=== PATIENT | female | born 1965 | race African-American/Black ===

== ENCOUNTER 2023-03-26 04:10 | Day surgery (SDC) | payer OTHER ==
[2023-03-25 17:20] VITALS: BMI 32.2
[2023-03-26 07:48] VITALS: RESP 20
[2023-03-26] MEDS ORDERED: MIDAZOLAM HCL 2 MG/2 ML SINGLE DOSE VIAL ONE (08:59)
[2023-03-26] MEDS ORDERED: ONDANSETRON 4 MG/2 ML VIAL ONE (09:35)
[2023-03-26] MEDS ORDERED: PROPOFOL 20 ML ONE (09:49)
[2023-03-26] MEDS ORDERED: ELECTROLYTE-148 SOLN 1,000 ML IV SCH (10:15)
[2023-03-26 12:34] VITALS: BP 127/73; PULSE 52; TEMP 96.6
== END 2023-03-26 13:30 | disposition home or self-care (01) ==
LOC: JASU-SURG 04:10
PROVIDERS: ATTEND Urology
PROC: 0TF4XZZ Fragmentation in Left Kidney Pelvis, External Approach (ICD-10-PCS; principal; 2023-03-26 08:45)
DX: N20.0 Calculus of kidney (principal)